=== PATIENT | male | born 1955 | race Caucasian/White ===

== ENCOUNTER 2018-05-18 09:14 | Observation (INO) | payer OTHER ==
[2018-05-18] MEDS ORDERED: Lactated Ringers 1,000 ML IV SCH (10:30)
[2018-05-18] MEDS ORDERED: Propofol 200 MG/20 ML SDV ONE (10:38)
[2018-05-18] MEDS ORDERED: Midazolam 1 MG/ML 2 ML SDV ONE (10:38)
[2018-05-18] MEDS ORDERED: ePHEDrine 50 MG/ML SDV ONE (10:39)
--- NOTE | 2018-05-18 11:50 | PCM.PREANE ---
Preanesthetic Assessment - Anesthesia/Transfusion/Family Hx Anesthesia History: Prior Anesthesia Without Reaction Family History of Anesthesia Reaction: No - Review of Systems General: No Symptoms Pulmonary: No Symptoms Cardiovascular: Other (arrythmia a flutter) Gastrointestinal: No Symptoms Neurological: No Symptoms Other: Reports: None, Easy Bleeding (on elliquis) - Physical Assessment O2 Sat by Pulse Oximetry: 93 Respiratory Rate: 18 Vital Signs: Last Vital Signs Temp 36.8 C 05/18/18 09:30 Pulse 63 05/18/18 10:00 Resp 18 05/18/18 10:00 BP 128/80 05/18/18 10:00 Pulse Ox 93 L 05/18/18 10:00 Height: 1.68 m Weight: 82.7 kg ASA Class: 2 Mental Status: Alert & Oriented x3 Airway Class: Mallampati = 1 Dentition: Reports: Normal Dentition ROM/Head Extension: Full Lungs: Clear to Auscultation, Normal Respiratory Effort Cardiovascular: Regular Rate, Regular Rhythm - Allergies Allergies/Adverse Reactions: Allergies Allergy/AdvReac Type Severity Reaction Status Date / Time No Known Allergies Allergy Verified 02/08/15 14:53 - Blood Blood Available: No - Anesthesia Plan Pre-Op Medication Ordered: None - Acknowledgements Anesthesia Type Planned: General Anesthesia Pt an Appropriate Candidate for the Planned Anesthesia: Yes Alternatives and Risks of Anesthesia Discussed w Pt/Guardian: Yes Pt/Guardian Understands and Agrees with Anesthesia Plan: Yes Additional Comments: scheduled for elective cardioversion of an outpatient with a flutter, who has been anticoagulated and placed on antiarrythmics for rate control. Appropriately NPO, good airway, consent obtained, questions answered. PreAnesthesia Questionnaire - CURRENT (IN HOUSE) MEDS Current Meds: Current Medications Lactated Ringer's (Ringers, Lactated) 1,000 mls @ 125 mls/hr IV ASDIRECTED DIAMANTE Discontinued Medications Ephedrine Sulfate (Ephedrine Sulfate) Confirm Administered Dose 50 mg .ROUTE .STK-MED ONE Stop: 05/18/18 10:40 Midazolam HCl (Versed 1 Mg/Ml) Confirm Administered Dose 2 mg .ROUTE .STK-MED ONE Stop: 05/18/18 10:39 Propofol (Diprivan 20 Ml) Confirm Administered Dose 200 mg .ROUTE .STK-MED ONE Stop: 05/18/18 10:39
--- NOTE | 2018-05-18 12:38 | PCM.PRNOTE ---
- Free Text/Narrative Note: PROCEDURE: Direct current cardioversion. REASON FOR PROCEDURE: Atrial flutter/ atrial fibrillation. PROCEDURE IN DETAIL: The procedure was explained to the patient with risks and benefits including risk of stroke. The patient understands . The patient had already been on anticogulation religiously including the day of the procedure. The pads applied in the anterior and posterior approach. With synchronized biphasic waveform at 50 J, one shock was delivered and the rhythm was turned into atrial fibrillation with slow rate. Then another attempt of cardioversion with biphasic waveform 200 j was performed. The ryhthm was converted to sinus bradycardia successfully. The patient had some occasional PACs noticed with occasional sinus bradycardia. The patient had no immediate post-procedure complications. The rhythm was maintained and 12-lead EKG was requested. IMPRESSION: Successful direct current cardioversion with jain of sinus rhythm from atrial flutter and atrial fibrillation with no immediate complication. Plan 1. post procedure observation for 6 hours 2. continue anticoagulation at least 4 weeks 3. I will start him on AAD amiodarone PO 4. f/u outpatient in one week
--- NOTE | 2018-05-18 15:09 | PCM48HPAN ---
Post Anesthesia Note - EVALUATION WITHIN 48HRS OF ANESTHETIC Vital Signs in Normal Range: Yes Patient Participated in Evaluation: Yes Respiratory Function Stable: Yes Airway Patent: Yes Cardiovascular Function Stable: Yes Hydration Status Stable: Yes Pain Control Satisfactory: Yes Nausea and Vomiting Control Satisfactory: Yes Mental Status Recovered: Yes Resp Rate: 18
--- NOTE | 2018-05-18 15:09 | PCM.POSTAN ---
POST ANESTHESIA ASSESSMENT - MENTAL STATUS Mental Status: Alert, Oriented - RESPIRATORY Respiratory Status: Respiratory Rate WNL, Airway Patent, O2 Saturation Stable - CARDIOVASCULAR CV Status: Pulse Rate WNL, Blood Pressure Stable - GASTROINTESTINAL GI Status: No Symptoms - POST OP HYDRATION Hydration Status: Adequate & Stable
[2018-05-18 15:55] VITALS: BP 109/56
[2018-05-18 15:56] LABS: CHLORIDE,CL 105 mmol/L (98-107); SODIUM,NA 140 mmol/L (136-148)
== END 2018-05-18 16:45 | disposition home or self-care (01) ==
LOC: MW.SDS 09:14 → MW.ICU 09:24
PROVIDERS: ADMIT Internal Medicine; ATTEND Internal Medicine
DX: I48.92 Unspecified atrial flutter (principal); I10 Essential (primary) hypertension; G89.4 Chronic pain syndrome; E11.42 Type 2 diabetes mellitus with diabetic polyneuropathy; Z79.899 Other long term (current) drug therapy; Z79.01 Long term (current) use of anticoagulants; Z79.84 Long term (current) use of oral hypoglycemic drugs; Z87.891 Personal history of nicotine dependence
CPT/HCPCS: 36415; 80053; 84443; 93005; J7120; J2250; J2704

== ENCOUNTER 2020-01-23 16:56 | Emergency (ER) | payer MEDICARE ==
--- NOTE | 2020-01-23 17:11 | EDM.PDOC ---
ED HPI GENERAL MEDICAL PROBLEM - General Chief Complaint: Upper Extremity Injury/Pain Stated Complaint: LEFT ANKLE PAIN Time Seen by Provider: 01/23/20 17:11 Source of Information: Reports: Patient History Limitations: Reports: No Limitations - History of Present Illness INITIAL COMMENTS - FREE TEXT/NARRATIVE: HISTORY AND PHYSICAL: History of present illness: Patient is a 64-year-old male presents to the ED With complaint of left ankle injury. Patient states that 1 week ago he was getting a horse out of a trailer. He states the horse back up over his left leg either stepping on or hitting his left ankle. He has been walking on it but states it is not getting better. He does take tramadol for knee pain and states he has been needing to take the tramadol more frequently due to the pain. Review of systems: As per history of present illness and below otherwise all systems reviewed and negative. Past medical history: As per history of present illness and as reviewed below otherwise noncontributory. Surgical history: As per history of present illness and as reviewed below otherwise noncontributory. Social history: No reported history of drug or alcohol abuse. Family history: As per history of present illness and as reviewed below otherwise noncontributory. Physical exam: General: Patient sitting comfortably in no acute distress and nontoxic appearing HEENT: Atraumatic, normocephalic, pupils reactive, negative for conjunctival pallor or scleral icterus, mucous membranes moist, throat clear, neck supple, nontender, trachea midline. No meningeal signs. Lungs: Clear to auscultation, breath sounds equal bilaterally, chest nontender. Heart: S1S2, regular, negative for clicks, rubs, or overt murmur. Abdomen: Soft, nondistended, nontender. Negative for masses or hepatosplenomegaly. Negative for costovertebral tenderness. No rigidity, rebound , guarding. Pelvis: Stable nontender. Genitourinary: Deferred. Rectal: Deferred. Extremities: Mild swelling to the medial ankle. No obvious deformity. Skin is intact. Pain to palpation along the medial malleolus. Atraumatic, negative for cords or calf pain. Neurovascular unremarkable. Neuro: Awake, alert, oriented. Cranial nerves II through XII unremarkable. Cerebellum unremarkable. Motor and sensory unremarkable throughout. Exam nonfocal. Notes: Diagnostics: Left ankle x-ray Therapeutics: post mold splint, crutches Prescriptions: Tramadol (#15) Impression: Posterior malleolus fracture Plan: Ice, elevate, and motrin or tylenol as needed Follow up with orthopedics, please call the number provided to schedule an appointment Return to ED as needed as discussed Definitive disposition and diagnosis as appropriate pending reevaluation and review of above. left lower extremity Pain Score (Numeric/FACES): 5 - Related Data Allergies Allergy/AdvReac Type Severity Reaction Status Date / Time No Known Allergies Allergy Verified 11/13/18 01:13 Home Meds: Home Meds Acetaminophen [Tylenol Arthritis] 650 mg PO DAILY 11/13/18 [History] Amiodarone [Cordarone] 0.5 tab PO DAILY 11/13/18 [History] Metoprolol Tartrate 1 tab PO BID 11/13/18 [History] Omeprazole 1 cap PO DAILY 11/13/18 [History] sitaGLIPtin Phos/Metformin HCl [Janumet 50-1,000 MG] 1 tab PO BID 11/13/18 [ History] traMADol HCl [Tramadol HCl ER] 1 tab PO DAILY 11/13/18 [History] traMADol HCl [Tramadol HCl] 1 tab PO DAILY PRN 11/13/18 [History] Past Medical History Endocrine/Metabolic History: Reports: Diabetes, Type II - Past Surgical History HEENT Surgical History: Reports: Eye Surgery Cardiovascular Surgical History: Reports: Cardiac Ablation GI Surgical History: Reports: Hernia, Inguinal Social & Family History - Family History Family Medical History: Noncontributory - Caffeine Use Caffeine Use: Reports: Coffee, Soda, Tea Review of Systems - Review of Systems Review Of Systems: Comprehensive ROS is negative, except as noted in HPI. ED EXAM, GENERAL - Physical Exam Exam: See Below (see dictation) Course - Vital Signs Last Recorded V/S: Last Vital Signs Temp 97.2 F 01/23/20 17:09 Pulse 71 01/23/20 17:09 Resp 16 01/23/20 17:09 BP 158/97 H 01/23/20 17:09 Pulse Ox 95 01/23/20 17:09 Departure - Departure Time of Disposition: 18:45 Disposition: Home, Self-Care 01 Condition: Good Clinical Impression: Fracture of malleolus - Discharge Information Referrals: Rafael Arellano MD [Primary Care Provider] - Forms: ED Department Discharge Additional Instructions: The following information is given to patients seen in the emergency department who are being discharged to home. This information is to outline your options for follow-up care. We provide all patients seen in our emergency department with a follow-up referral. The need for follow-up, as well as the timing and circumstances, are variable depending upon the specifics of your emergency department visit. If you don't have a primary care physician on staff, we will provide you with a referral. We always advise you to contact your personal physician following an emergency department visit to inform them of the circumstance of the visit and for follow-up with them and/or the need for any referrals to a consulting specialist. The emergency department will also refer you to a specialist when appropriate. This referral assures that you have the opportunity for follow-up care with a specialist. All of these measure are taken in an effort to provide you with optimal care, which includes your follow-up. Under all circumstances we always encourage you to contact your private physician who remains a resource for coordinating your care. When calling for follow-up care, please make the office aware that this follow-up is from your recent emergency room visit. If for any reason you are refused follow-up, please contact the [facility] Emergency Department at and asked to speak to the emergency department charge nurse. [facility] - [facility] [address], [address] [place] [address] 1. Ice, elevate, and motrin or tylenol as needed. You may take tramadol as needed for severe pain. 2. Follow up with orthopedics, please call the number provided to schedule an appointment 3. Return to ED as needed as discussed Sepsis Event Note - Evaluation Sepsis Screening Result: No Definite Risk - Focused Exam Vital Signs: Vital Signs Temp Pulse Resp BP Pulse Ox 01/23/20 17:09 97.2 F 71 16 158/97 H 95 Date Exam was Performed: 01/23/20 Time Exam was Performed: 18:44
--- NOTE | 2020-01-23 18:15 | CR ---
Left ankle: 3 views left ankle were obtained. Comparison: No previous study. Soft tissue swelling is identified. Plantar spur is noted. Vascular calcification is seen. Lucent line is identified through the posterior malleolus likely due to fracture. Bony density noted at the base of the 5th metatarsal which is well-corticated most likely represents an old injury. No additional abnormality is appreciated. Impression: 1. Probable acute posterior malleolus fracture. Please correlate that patient is symptomatic to this area. 2. Bony density off the base of the 5th metatarsal most likely due to old ununited fracture. If patient is symptomatic to this area, foot exam then recommended. 3. Soft tissue swelling and other findings as noted above. Diagnostic code #3 This report was dictated in Mountain Standard Time
[2020-01-23 19:13] VITALS: BP 131/73; PULSE 70
== END 2020-01-23 19:13 | disposition home or self-care (01) ==
LOC: MW.ED 16:56
DX: S82.892A Other fracture of left lower leg, initial encounter for closed fracture (principal); X58.XXXA Exposure to other specified factors, initial encounter
CPT/HCPCS: 29515; 73610-26-LT; 73610-LT; 99283; 99283-25

== ENCOUNTER 2020-10-03 13:12 | Emergency (ER) | payer MEDICARE ==
--- NOTE | 2020-10-03 13:16 | EDM.PDOC ---
ED HPI GENERAL MEDICAL PROBLEM - General Chief Complaint: Trauma Stated Complaint: TRAUMA ALERT Time Seen by Provider: 10/03/20 13:12 Source of Information: Reports: Patient History Limitations: Reports: No Limitations - History of Present Illness INITIAL COMMENTS - FREE TEXT/NARRATIVE: 65-year-old male past medical history hypertension, diabetes presents after getting kicked in the head by a cow. Patient states this occurred about 24 hours ago. Hit him in the right thigh. He notes swelling and pain around the right eye. Denies changes in vision. Notes mild pain in right posterior neck. No difficulty breathing, chest pain, abdominal pain, nausea, vomiting. He has been ambulatory after the accident. He took tramadol for pain at home. He is on a baby aspirin but denies any other antiplatelet or anticoagulation use. Right Eye Pain Score (Numeric/FACES): 3 - Related Data Allergies Allergy/AdvReac Type Severity Reaction Status Date / Time No Known Allergies Allergy Verified 10/03/20 13:27 Home Meds: Home Meds Acetaminophen [Tylenol Arthritis] 650 mg PO ASDIRECTED 11/13/18 [History] Amiodarone [Cordarone] 1 tab PO DAILY 11/13/18 [History] Metoprolol Tartrate 1 tab PO BID 11/13/18 [History] Omeprazole 2 cap PO DAILY 11/13/18 [History] sitaGLIPtin Phos/Metformin HCl [Janumet 50-1,000 MG] 1 tab PO BID 11/13/18 [History] traMADol HCl [Tramadol HCl ER] 1 tab PO DAILY 11/13/18 [History] traMADol HCl [Tramadol HCl] 1 tab PO DAILY PRN 11/13/18 [History] Amoxicillin/Potassium Clav [Augmentin 875-125 Tablet] 1 each PO BID 7 Days #14 tablet 10/03/20 [Rx] Pioglitazone [Actos] 1 dose PO DAILY 10/03/20 [History] Past Medical History Cardiovascular History: Reports: Afib, Hypertension Other Musculoskeletal History: knee surgery Endocrine/Metabolic History: Reports: Diabetes, Type II - Past Surgical History HEENT Surgical History: Reports: Eye Surgery Cardiovascular Surgical History: Reports: Cardiac Ablation GI Surgical History: Reports: Hernia, Inguinal Social & Family History - Family History Family Medical History: Noncontributory - Caffeine Use Caffeine Use: Reports: Coffee, Soda, Tea Review of Systems - Review of Systems Review Of Systems: Comprehensive ROS is negative, except as noted in HPI. ED EXAM, GENERAL - Physical Exam Exam: See Below Exam Limited By: No Limitations General Appearance: Alert, WD/WN, No Apparent Distress Eye Exam: Bilateral Eye: EOMI, PERRL Ears: Normal External Exam Nose: Normal Inspection Throat/Mouth: Normal Voice, No Airway Compromise Head: Normocephalic, Other (significant swelling of R periorbital face w/ overlying eyelid abrasions) Neck: Normal Inspection. No: Tender Midline Respiratory/Chest: No Respiratory Distress, Lungs Clear, Normal Breath Sounds, No Accessory Muscle Use Cardiovascular: Normal Peripheral Pulses, Regular Rate, Rhythm GI/Abdominal: Soft, Non-Tender Back Exam: Normal Inspection Extremities: Normal Inspection Neurological: Alert, Oriented, CN II-XII Intact Psychiatric: Normal Affect, Normal Mood Skin Exam: Warm, Dry, Intact Course - Vital Signs Last Recorded V/S: Last Vital Signs Temp 98.3 F 10/03/20 13:15 Pulse 67 10/03/20 13:15 Resp 16 10/03/20 13:15 BP 145/80 H 10/03/20 13:15 Pulse Ox 98 10/03/20 13:15 - Re-Assessments/Exams Free Text/Narrative Re-Assessment/Exam: 10/03/20 13:[address] head, max-face, C-spine. Will follow up results and disposition accordingly. 10/03/20 14:16 CT imaging is remarkable for orbital floor fracture. Will discharge with prophylactic antibiotics and ophthalmology follow-up. Return precautions discussed for entrapment. Departure - Departure Time of Disposition: 14:16 Disposition: Home, Self-Care 01 Condition: Good Clinical Impression: Orbital floor (blow-out) closed fracture - Discharge Information Prescriptions: Amoxicillin/Potassium Clav [Augmentin 875-125 Tablet] 1 each PO BID 7 Days #14 tablet Instructions: Orbital Floor Fracture With Entrapment Forms: ED Department Discharge Additional Instructions: CT imaging is remarkable for orbital floor fracture. You do not have any evidence of entrapment of your muscles. You should follow-up with an meter/relay craftsman for reassessment. I have also prescribed you antibiotics to prevent infection. The following information is given to patients seen in the emergency department who are being discharged to home. This information is to outline your options for follow-up care. We provide all patients seen in our emergency department with a follow-up referral. The need for follow-up, as well as the timing and circumstances, are variable depending upon the specifics of your emergency department visit. If you don't have a primary care physician on staff, we will provide you with a referral. We always advise you to contact your personal physician following an emergency department visit to inform them of the circumstance of the visit and for follow-up with them and/or the need for any referrals to a consulting specialist. The emergency department will also refer you to a specialist when appropriate. This referral assures that you have the opportunity for follow-up care with a specialist. All of these measure are taken in an effort to provide you with optimal care, which includes your follow-up. Under all circumstances we always encourage you to contact your private physician who remains a resource for coordinating your care. When calling for follow-up care, please make the office aware that this follow-up is from your recent emergency room visit. If for any reason you are refused follow-up, please contact the [facility] Emergency Department at and asked to speak to the emergency department charge nurse. Please follow up with your primary care physician. If you do not have a primary care physician, see below: [facility] [address] [place] [id number] [facility] [address] [place] [address] Sepsis Event Note (ED) - Focused Exam Vital Signs: Vital Signs Temp Pulse Resp BP Pulse Ox 10/03/20 13:15 98.3 F 67 16 145/80 H 98
--- NOTE | 2020-10-03 14:04 | CT ---
INDICATION: Kicked in face by a calf yesterday. COMPARISON: None TECHNIQUE: CT examination of the head was performed as axial sections without intravenous contrast. Images were obtained from the vertex of the skull through the skull base. Please note that all CT scans at this facility use dose modulation, iterative reconstruction, and/or weight-based dosing when appropriate to reduce radiation dose to as low as reasonably achievable. FINDINGS: The brain shows no sign of mass lesion, mass effect, hemorrhage, or edema. The ventricles and sulci are normal in appearance for the patient`s age. The visualized portions of the orbits are normal in appearance. There is soft tissue swelling in the region of the right orbit and there is a right orbital region fracture which will be further described in the facial bone report. IMPRESSION: 1. No visible acute intracranial posttraumatic findings. 2. Soft tissue swelling in the right orbital region within orbital region fracture which is more fully characterized in the facial bone report under separate cover Please note that all CT scans at this facility use dose modulation, iterative reconstruction, and/or weight-based dosing when appropriate to reduce radiation dose to as low as reasonably achievable. Dictated by Simón Shields MD @ Oct 03 2020 1:59PM Signed by Dr. Simón Shields @ Oct 03 2020 2:02PM
--- NOTE | 2020-10-03 14:08 | CT ---
INDICATION: Kicked in the face by a calf yesterday. COMPARISON: None TECHNIQUE: CT examination of the cervical spine is performed without contrast using spiral technique. Thin axial, sagittal and coronal reconstructions were made. Please note that all CT scans at this facility use dose modulation, iterative reconstruction, and/or weight-based dosing when appropriate to reduce radiation dose to as low as reasonably achievable. FINDINGS: : Bone mineral density appears decreased. There is no lytic or blastic lesion, fracture or dislocation identified involving the spine. There are moderate degenerative changes diffusely. There is an orbital region fracture on the right as more fully described in the facial bone report. IMPRESSION: 1. No fracture, dislocation or destructive process involving the spine. Degenerative changes. 2. Orbital region fracture on the right as more fully described on the facial bone report Please note that all CT scans at this facility use dose modulation, iterative reconstruction, and/or weight-based dosing when appropriate to reduce radiation dose to as low as reasonably achievable. Dictated by Simón Shields MD @ Oct 03 2020 2:02PM Signed by Dr. Simón Shields @ Oct 03 2020 2:06PM
--- NOTE | 2020-10-03 14:12 | CT ---
Indication: Kicked in the face by a calf yesterday Technique: CT examination of the facial bones was performed. Imaging was acquired from above the frontal sinuses through the hyoid bone. Contrast not administered. Sagittal and coronal reformatted imaging performed Comparison: None prior to today Findings: There is an orbital floor fracture on the right. This is a relatively large fracture where the majority of the floor is downwardly displaced. Maximum downward displacement is about 7 millimeters as measured from coronal image number 34. This does not have a typical angled trap door morphology but rather the near entirety of the floor is downwardly displaced. However, the inferior rectus muscle is not entrapped and is above the floor. There is soft tissue swelling in this area. There is pre-existing chronic appearing sinus mucosal inflammatory disease parent the fracture involves the infraorbital canal on the right. No additional fractures. There is soft tissue swelling especially in the preseptal right orbital area. There may be a subtle fracture of the nasal bone on the right versus is a 1 millimeter foreign body as seen on axial image 53 of 82. The globe is intact. There is no retro subpleural or intraconal involvement Impression: 1. Orbital floor fracture on the right as described. 2. Right periorbital soft tissue swelling. The globe is intact and there is no involvement of the retro subtotal or intraconal space on the right. 3. Soft tissue swelling overlying the nose especially towards the right. There is a tiny fracture versus a tiny foreign body as described Please note that all CT scans at this facility use dose modulation, iterative reconstruction, and/or weight-based dosing when appropriate to reduce radiation dose to as low as reasonably achievable. Dictated by Simón Shields MD @ Oct 03 2020 2:06PM Signed by Dr. Simón Shields @ Oct 03 2020 2:12PM
[2020-10-03] MEDS ORDERED: traMADol 50 MG Tab PO ONE (14:23)
[2020-10-03 14:29] VITALS: BP 156/79; PULSE 73
== END 2020-10-03 14:31 | disposition home or self-care (01) ==
LOC: MW.ED 13:12
DX: S02.31XA Fracture of orbital floor, right side, initial encounter for closed fracture (principal); I10 Essential (primary) hypertension; E11.9 Type 2 diabetes mellitus without complications; I48.91 Unspecified atrial fibrillation; Z79.899 Other long term (current) drug therapy; W55.22XA Struck by cow, initial encounter
CPT/HCPCS: 70450; 70486; 72125; 99283; A9270; 99282

== ENCOUNTER 2021-10-08 19:58 | Emergency (ER) | payer MEDICARE ==
[2021-10-08 20:22] VITALS: BP 140/83
[2021-10-08 22:22] VITALS: PULSE 100
--- NOTE | 2021-10-08 22:50 | EDM.PDOC ---
ED HPI GENERAL MEDICAL PROBLEM - General Chief Complaint: General Stated Complaint: COVID SYMTPOMS Time Seen by Provider: 10/08/21 21:17 - History of Present Illness INITIAL COMMENTS - FREE TEXT/NARRATIVE: CHIEF COMPLAINT(S): Tired HISTORY OF PRESENT ILLNESS: This is a 66-year-old man with a past medical history of diabetes mellitus, hypertension, atrial fibrillation who comes to the emergency department with a chief complaint of tired. The patient states that he has been extremely tired and was been sleeping all day. He states that this has been going on for approximately 1 week to 10 days. He has had intermittent fever and some shortness of breath with nonproductive cough. He states that he is in the emergency department because his is concerned because he does not usually sleep this much. He denies any chest pain, swelling of his legs, recent travel, recent surgery or prior history of DVT or PE. They state they are mainly concerned that he has Covid REVIEW OF SYSTEMS: Constitutional: Positive fatigue and fevers Eyes: Denies eye pain Ears, Nose, Mouth, & Throat: Denies earache Cardiovascular: Denies chest pain Respiratory: Positive for shortness of breath and nonproductive cough Gastrointestinal: Denies Nausea, vomiting, diarrhea, hematochezia. Genitourinary: Denies hematuria Skin:Denies a rash MSK: Denies joint pain Neurological: Denies blurred vision Psychiatric: Denies depression PAST MEDICAL HISTORY: As per history of present illness and as reviewed below otherwise noncontributory. SURGICAL HISTORY: As per history of present illness and as reviewed below otherwise noncontributory. SOCIAL HISTORY: As per history of present illness and as reviewed below otherwise noncontributory. FAMILY HISTORY: As per history of present illness and as reviewed below otherwise noncontributory. EXAMINATION OF ORGAN SYSTEMS/BODY AREAS: Constitutional: Blood pressure is 140/83, heart rate 85, respiratory rate 22 with an oxygen saturation of 95% on room air. Temperature 38.1 General: Middle-aged man who does not appear to be in any acute distress Psychiatric: Appropriate mood and affect. Eyes: No scleral icterus or conjunctival erythema ENMT: Moist mucous membranes. No pharyngeal erythema Cardiovascular: Regular, rate, and rhythm. No gallops, murmurs, or rubs. Bilateral upper extremity pulses symmetric and intact. No peripheral edema. No JVD. Respiratory: Lungs clear to auscultation bilaterally. No wheezes, rales, or rhonchi. Gastrointestinal: Soft, non-tender, non-distended. Normoactive bowel sounds Genitourinary: No suprapubic tenderness Musculoskeletal: Normal range of motion. Skin: No lesions or abrasions. Neurological: Alert, GCS 15 MEDICAL DECISION MAKING AND COURSE IN THE ED WITH INTERPRETATION/REVIEW OF DIAGNOSTIC STUDIES: This is a 66-year-old man with a past medical history of hypertension, diabetes mellitus who comes to the emergency department with 10 days of intermittent fever, cough and shortness of breath who is borderline hypoxic on room air and borderline febrile who overall appears well. At this time will obtain a COVID-19 swab. I do not believe any other labs or imaging are indicated. Patient was amenable to this plan. Laboratory: COVID-19 is positive. Given the patient is 10 days into his illness the patient is not a candidate for Regeneron therapy. I did discuss symptomatic treatment at home and strict return precautions. The patient was amenable discharge and had no further questions. DISPOSITION: The patient was discharged home in stable condition. The patient will follow up with primary care physician in 3 to 5 days CONDITION: Fair PROCEDURES: None FINAL IMPRESSION(S)/DIAGNOSES: 1. Acute COVID-19 infection Geo Leija M.D. - Related Data Allergies Allergy/AdvReac Type Severity Reaction Status Date / Time No Known Allergies Allergy Verified 10/08/21 20:20 Home Meds: Home Meds Acetaminophen [Tylenol Arthritis] 650 mg PO ASDIRECTED 11/13/18 [History] Amiodarone [Cordarone] 1 tab PO DAILY 11/13/18 [History] Metoprolol Tartrate 1 tab PO BID 11/13/18 [History] Omeprazole 2 cap PO DAILY 11/13/18 [History] sitaGLIPtin Phos/Metformin HCl [Janumet 50-1,000 MG] 1 tab PO BID 11/13/18 [History] traMADol HCl [Tramadol HCl ER] 1 tab PO DAILY 11/13/18 [History] traMADol HCl [Tramadol HCl] 1 tab PO DAILY PRN 11/13/18 [History] Pioglitazone [Actos] 1 dose PO DAILY 10/03/20 [History] Past Medical History Cardiovascular History: Reports: Afib, Hypertension Other Musculoskeletal History: knee surgery Endocrine/Metabolic History: Reports: Diabetes, Type II Hematologic History: Reports: None - Past Surgical History HEENT Surgical History: Reports: Eye Surgery Cardiovascular Surgical History: Reports: Cardiac Ablation GI Surgical History: Reports: Hernia, Inguinal Social & Family History - Family History Family Medical History: No Pertinent Family History - Tobacco Use Second Hand Smoke Exposure: No - Caffeine Use Caffeine Use: Reports: None - Recreational Drug Use Recreational Drug Use: No ED ROS GENERAL - Review of Systems Review Of Systems: See Below ED EXAM, GENERAL - Physical Exam Exam: See Below Course - Vital Signs Last Recorded V/S: Last Vital Signs Temp 38.1 C 10/08/21 20:17 Pulse 100 10/08/21 22:22 Resp 18 10/08/21 22:22 BP 140/83 10/08/21 20:17 Pulse Ox 96 10/08/21 22:22 - Orders/Labs/Meds Labs: Laboratory Tests 10/08/21 Range/Units 20:20 SARS-CoV-2 RNA ([facility]LER) POSITIVE H (NEGATIVE) Departure - Departure Time of Disposition: 22:49 Disposition: Home, Self-Care 01 Condition: Fair Clinical Impression: COVID-19 - Discharge Information *PRESCRIPTION DRUG MONITORING PROGRAM REVIEWED*: No *COPY OF PRESCRIPTION DRUG MONITORING REPORT IN PATIENT LISANDRO: No Instructions: What You Should Know About COVID-19 to Protect Yourself and Others - CDC, 10 Things You Can Do to Manage Your COVID-19 Symptoms at Home - [facility] (06/15/2021), COVID-19: How to Protect Yourself and Others - CDC, COVID-19: Quarantine vs. Isolation - [facility] (11/16/2020), COVID-19: What to Do If You Are Sick- [facility] (02/14/2021) Referrals: Rafael Arellano MD [Primary Care Provider] - Forms: ED Department Discharge Additional Instructions: You should take acetaminophen 500-1000 mg every 6 hours as needed for fever and muscle aches. Please drink plenty of fluids and get plenty of rest over the next several days. We would recommend that she get a pulse oximeter from the pharmacy to keep an eye on your oxygen level. If your oxygen level drops below 91%, you should return to the ED for evaluation. You should return to the ER sooner if you start having any symptoms of shortness of breath or any other new or concerning symptoms. 1. Your COVID-19 screening is positive. That means you do have the coronavirus and you are considered contagious. Your vital signs and oxygen saturation are well enough that you were able to monitor your symptoms at home. Continue to monitor for trouble breathing, new confusion or inability to arouse, bluish lips or face or any of the other symptoms we discussed -if this occurs please return to the emergency room. 2. Please self quarantine over the next 10 days. Inform any persons that you have been in contact with since you started becoming symptomatic that you have tested positive; they should be made aware and take the appropriate steps as needed. 3. May alternate Tylenol and ibuprofen as needed for pain and fever management. 4. The [facility] department will be calling you and following up with you. The [place] COVID 19 Hotline phone number , They are open Friday - Friday 7am - 7pm. Follow up with your primary care provider for re-evaluation and re-testing after the 10 day quarantine and discuss when you should be seen. [facility] - Primary [facility] [address] [place] [address] [place] [address] The patient is informed of any results of their evaluation and diagnostic workup and all questions are answered. They are given discharge instructions and return precautions. The patient is stable for discharge. The patient states they understand and agree with the plan and that they will return if their symptoms get worse or if they have any new concerns. The following information is given to patients seen in the emergency department who are being discharged to home. This information is to outline your options for follow-up care. We provide all patients seen in our emergency department with a follow-up referral. The need for follow-up, as well as the timing and circumstances, are variable depending upon the specifics of your emergency department visit. If you don't have a primary care physician on staff, we will provide you with a referral. We always advise you to contact your personal physician following an emergency department visit to inform them of the circumstance of the visit and for follow-up with them and/or the need for any referrals to a consulting specialist. The emergency department will also refer you to a specialist when appropriate. This referral assures that you have the opportunity for follow-up care with a specialist. All of these measure are taken in an effort to provide you with optimal care, which includes your follow-up. Under all circumstances we always encourage you to contact your private physician who remains a resource for coordinating your care. When calling for follow-up care, please make the office aware that this follow-up is from your recent emergency room visit. If for any reason you are refused follow-up, please contact the [facility] Department at and asked to speak to the emergency department charge nurse. Sepsis Event Note (ED) - Evaluation Sepsis Screening Result: No Definite Risk - Focused Exam Vital Signs: Vital Signs Temp Pulse Resp BP Pulse Ox 10/08/21 22:22 100 18 96 10/08/21 20:17 38.1 C 85 22 H 140/83 94 L
== END 2021-10-08 23:15 | disposition home or self-care (01) ==
LOC: MW.ED 19:58
DX: U07.1 COVID-19 (principal); E11.9 Type 2 diabetes mellitus without complications; I10 Essential (primary) hypertension; Z79.899 Other long term (current) drug therapy
CPT/HCPCS: 99283; U0002

== ENCOUNTER 2021-10-11 14:16 | Emergency (ER) | payer MEDICARE ==
[2021-10-11] MEDS ORDERED: Sodium Chloride 0.9% 1,000 ML IV ONE (14:43)
--- NOTE | 2021-10-11 14:49 | EDM.PDOC ---
ED HPI GENERAL MEDICAL PROBLEM - General Chief Complaint: General Stated Complaint: HASNT BEEN EATING SICK Time Seen by Provider: 10/11/21 14:23 Source of Information: Reports: Patient History Limitations: Reports: No Limitations - History of Present Illness INITIAL COMMENTS - FREE TEXT/NARRATIVE: HISTORY AND PHYSICAL: History of present illness: Patient is a 66-year-old male who presents to the emergency room with known COVID-19 who has complaints of decreased appetite and nausea/vomiting with attempting to eat. Patient states he hasn't eaten in 3 to 4 days. Today he att empted to eat some tomato soup but immediately had an emesis. He states he feels generally weak and fatigued. He has had COVID type symptoms for the past 2 weeks. Patient denies any fever, chills, headache, change in vision, syncope or near syncope. Denies any chest pain, back pain, shortness of breath or cough. Denies any abdominal pain, diarrhea, constipation or dysuria. Has not noted any blood in urine or stool. Review of systems: As per history of present illness and below otherwise all systems reviewed and negative. Past medical history: As per history of present illness and as reviewed below otherwise noncontributory. Surgical history: As per history of present illness and as reviewed below otherwise noncontributory. Social history: See social history for further information Family history: As per history of present illness and as reviewed below otherwise noncontributory. Physical exam: General: Well developed and well nourished. Alert and orientated x 3. Nontoxic i n appearance and in no acute distress. Vital signs are stable and have been reviewed by me. Nursing notes were reviewed. HEENT: Atraumatic, normocephalic, pupils equal and reactive bilaterally, negat kendrick for conjunctival pallor or scleral icterus, mucous membranes dry, TMs normal bilaterally, throat clear, neck supple, nontender, trachea midline. No drooling or trismus noted. No meningeal signs. No hot potato voice noted. Lungs: Clear to auscultation bilaterally. No wheezes, rales, or rhonchi. Chest nontender. Normal work of breathing, no accessory muscles used. Heart: S1S2, regular rate and rhythm without overt murmur, gallops, or rubs. No JVD. No peripheral edema Abdomen: Soft, nondistended, nontender. Normoactive bowel sounds. Negative for masses or costovertebral tenderness. Pelvis: Stable nontender. Genitourinary/Rectal: Deferred. Skin: Intact, warm, dry. No lesions or rashes noted. Hematologic: No petechiae or purpra. Mucosa appropriate color and normal nail bed color and refill. Extremities: Atraumatic, moves all extremities per self without difficulty or deficits, negative for cords or calf pain. Neurovascular unremarkable. Neuro: Awake, alert, oriented. Cranial nerves II through XII unremarkable. Cerebellum unremarkable. Motor and sensory unremarkable throughout. Exam nonfocal. Psychiatric: Mood and affect are appropriate. Normal thought process. Answering questions appropriately. Please note that the patient was seen and evaluated during the 2019 SARS-CoV-2 novel coronavirus pandemic period. Community viral transmission is ongoing at time of this encounter and the emergency department is operating under pandemic response procedures. Medical Decision Making: Patient is a 66-year-old male who presents to the emergency room with known COVID-19 (symptoms x2 weeks) who complains of anorexia, decreased p.o. intake and nausea/vomiting after trying to eat today. Patient was not a candidate for monoclonal antibody therapy upon his diagnosis of COVID-19. Physical exam is unremarkable. His vital signs are stable. He does clinically appear dehydrated, will give him some fluids while waiting on basic labs. Mild derangements on labs, nothing concerning today. Patient is a type II diabetic and states he has not been taking his medications due to his decreased appetite. Anion gap is 8.9. Chest x-ray shows questionable patchy right infiltrates. I have talked with the patient about today's findings, in addition to providing specific details for plan of care. Reassessment at the time of disposition demonstrates that the patient is in no acute distress. Encourage patient to follow-up with his primary care provider for reevaluation and further management of his type 2 diabetes. The patient is stable for discharge, counseling was provided and we discussed in great detail signs and symptoms that would prompt them to return to the Emergency Department. Medication, follow up and supportive care measures were reviewed and discussed. Voices understanding and is agreeable to plan of care. Denies any further questions or concerns at this time. Diagnostics: CBC, CMP, chest x-ray Therapeutics: IV fluid, Zofran, Toradol Prescription: Zofran Impression: COVID-19 Type II diabetic Plan: 1. You were evaluated today on an emergent basis. Your lab work and chest x- ray show no acute or concerning findings. Your vital signs and oxygen saturati on are well enough that you were able to monitor your symptoms at home. Continue to monitor for trouble breathing, new confusion or inability to arouse, bluish lips or face or any of the other symptoms we discussed -if this occurs please return to the emergency room immediately. 2. Please self quarantine until cleared by [facility] Department. Inform any persons that you have been in contact with since you started becoming symptomatic that you have tested positive; they should be made aware and take the appropriate steps as needed. 3. Zofran has been prescribed for nausea management. You can take NyQuil during the evening to help get a restful night sleep. May alternate Tylenol and ibuprofen as needed for pain and fever management. 4. The [facility] department will be calling you and following up with you. The [facility] Hotline phone number , They are open Friday - Friday 7am - 7pm. Follow up with your primary care provider for re-evaluation as directed. Definitive disposition and diagnosis as appropriate pending reevaluation and review of above. - Related Data Allergies Allergy/AdvReac Type Severity Reaction Status Date / Time No Known Allergies Allergy Verified 10/11/21 14:48 Home Meds: Home Meds Acetaminophen [Tylenol Arthritis] 650 mg PO ASDIRECTED 11/13/18 [History] Amiodarone [Cordarone] 1 tab PO DAILY 11/13/18 [History] Metoprolol Tartrate 1 tab PO BID 11/13/18 [History] Omeprazole 2 cap PO DAILY 11/13/18 [History] sitaGLIPtin Phos/Metformin HCl [Janumet 50-1,000 MG] 1 tab PO BID 11/13/18 [History] traMADol HCl [Tramadol HCl ER] 1 tab PO DAILY 11/13/18 [History] traMADol HCl [Tramadol HCl] 1 tab PO DAILY PRN 11/13/18 [History] Pioglitazone [Actos] 1 dose PO DAILY 10/03/20 [History] Ondansetron [Zofran ODT] 4 mg PO Q6H PRN #8 tab.dis 10/11/21 [Rx] Past Medical History Cardiovascular History: Reports: Afib, Hypertension Other Musculoskeletal History: knee surgery Endocrine/Metabolic History: Reports: Diabetes, Type II Hematologic History: Reports: None - Past Surgical History HEENT Surgical History: Reports: Eye Surgery Cardiovascular Surgical History: Reports: Cardiac Ablation GI Surgical History: Reports: Hernia, Inguinal Social & Family History - Family History Family Medical History: No Pertinent Family History - Caffeine Use Caffeine Use: Reports: None ED ROS GENERAL - Review of Systems Review Of Systems: Comprehensive ROS is negative, except as noted in HPI. ED EXAM, GENERAL - Physical Exam Exam: See Below (See dictation) Course - Vital Signs Last Recorded V/S: Last Vital Signs Temp 97.3 F 10/11/21 14:49 Pulse 87 10/11/21 14:49 Resp 17 10/11/21 14:49 BP 136/73 10/11/21 14:49 Pulse Ox 95 10/11/21 14:49 - Orders/Labs/Meds Orders: Active Orders 24 hr Category Date Time Status Sodium Chloride 0.9% [Normal Saline] 1,000 ml Med 10/11/21 14:43 Active IV STAT Medication Orders Sodium Chloride (Normal Saline) 1,000 mls @ 125 mls/hr IV STAT ONE Stop: 10/11/21 22:42 Last Admin: 10/11/21 15:05 Dose: 125 mls/hr Documented by: PAOLO Labs: Laboratory Tests 10/11/21 10/11/21 10/11/21 Range/Units 15:00 15:00 15:00 WBC 7.06 (4.0-11.0) K/uL RBC 4.77 (4.50-5.90) M/uL Hgb 14.2 (13.0-17.0) g/dL Hct 42.1 (38.0-50.0) % MCV 88.3 (80.0-98.0) fL MCH 29.8 (27.0-32.0) pg MCHC 33.7 (31.0-37.0) g/dL RDW Std Deviation 43.1 (28.0-62.0) fl RDW Coeff of Kory 13 (11.0-15.0) % Plt Count 265 (150-400) K/uL MPV 9.70 (7.40-12.00) fL Neut % (Auto) 84.0 H (48.0-80.0) % Lymph % (Auto) 9.2 L (16.0-40.0) % Alcorn % (Auto) 6.7 (0.0-15.0) % Eos % (Auto) 0.0 (0.0-7.0) % Baso % (Auto) 0.1 (0.0-1.5) % Neut # (Auto) 5.9 H (1.4-5.7) K/uL Lymph # (Auto) 0.7 (0.6-2.4) K/uL Alcorn # (Auto) 0.5 (0.0-0.8) K/uL Eos # (Auto) 0.0 (0.0-0.7) K/uL Baso # (Auto) 0.0 (0.0-0.1) K/uL Nucleated RBC % 0.0 /100WBC Nucleated RBCs # 0 K/uL Sodium 136 (136-148) mmol/L Potassium 4.3 (3.5-5.1) mmol/L Chloride 99 (98-107) mmol/L Carbon Dioxide 28.1 (21.0-32.0) mmol/L BUN 24 H (7.0-18.0) mg/dL Creatinine 1.1 (0.8-1.3) mg/dL Est Cr Clr Drug Dosing 58.81 mL/min Estimated GFR (MDRD) > 60.0 ml/min Glucose 193 H (74-106) mg/dL Calcium 9.0 (8.5-10.1) mg/dL Total Bilirubin 0.5 (0.2-1.0) mg/dL AST 19 (15-37) IU/L ALT 22 (14-63) IU/L Alkaline Phosphatase 81 (46-116) U/L Total Protein 8.0 (6.4-8.2) g/dL Albumin 3.1 L (3.4-5.0) g/dL Globulin 4.9 H (2.6-4.0) g/dL Albumin/Globulin Ratio 0.6 L (0.9-1.6) Urine Color YELLOW Urine Appearance CLEAR Urine pH 5.5 (5.0-8.0) Ur Specific Rule >= 1.030 (1.001-1.035) Urine Protein 30 H (NEGATIVE) mg/dL Urine Glucose (UA) 250 H (NEGATIVE) mg/dL Urine Ketones TRACE H (NEGATIVE) mg/dL Urine Occult Blood TRACE-INTACT H (NEGATIVE) Urine Nitrite NEGATIVE (NEGATIVE) Urine Bilirubin SMALL H (NEGATIVE) Urine Urobilinogen 0.2 (<2.0) EU/dL Ur Leukocyte Esterase NEGATIVE (NEGATIVE) Urine RBC 0-5 (0-2/HPF) Urine WBC 0-5 (0-5/HPF) Ur Epithelial Cells RARE (NONE-FEW) Urine Bacteria NOT SEEN (NEGATIVE) Meds: Medications Generic Name Dose Route Start Last Admin Trade Name Freq PRN Reason Stop Dose Admin Sodium Chloride 1,000 mls @ 125 mls/hr 10/11/21 14:43 10/11/21 15:05 Normal Saline IV 10/11/21 22:42 125 mls/hr STAT ONE Administration Discontinued Medications Generic Name Dose Route Start Last Admin Trade Name Freq PRN Reason Stop Dose Admin Ketorolac Tromethamine 30 mg 10/11/21 15:45 10/11/21 15:56 Ketorolac 30 Mg/Ml Sdv IVPUSH 10/11/21 15:46 30 mg ONETIME ONE Administration Departure - Departure Time of Disposition: 16:03 Disposition: Home, Self-Care 01 Clinical Impression: COVID-19 DM type 2 (diabetes mellitus, type 2) Qualifiers: Diabetes mellitus prison insulin use: without rn long term care use Diabetes mellitus complication status: with hyperglycemia Qualified Code(s): E11.65 - Type 2 diabetes mellitus with hyperglycemia - Discharge Information Prescriptions: Ondansetron [Zofran ODT] 4 mg PO Q6H PRN #8 tab.dis PRN Reason: Nausea Instructions: 10 Things You Can Do to Manage Your COVID-19 Symptoms at Home - [facility] (06/15/2021) Referrals: Rafael Arellano MD [Primary Care Provider] - Forms: ED Department Discharge Additional Instructions: The following information is given to patients seen in the emergency department who are being discharged to home. This information is to outline your options for follow-up care. We provide all patients seen in our emergency department with a follow-up referral. The need for follow-up, as well as the timing and circumstances, are variable depending upon the specifics of your emergency department visit. If you don't have a primary care physician on staff, we will provide you with a referral. We always advise you to contact your personal physician following an emergency department visit to inform them of the circumstance of the visit and for follow-up with them and/or the need for any referrals to a consulting specialist. The emergency department will also refer you to a specialist when appropriate. This referral assures that you have the opportunity for follow-up care with a specialist. All of these measure are taken in an effort to provide you with optimal care, which includes your follow-up. Under all circumstances we always encourage you to contact your private physician who remains a resource for coordinating your care. When calling for follow-up care, please make the office aware that this follow-up is from your recent emergency room visit. If for any reason you are refused follow-up, please contact the [facility] at and asked to speak to the emergency department charge nurse. [facility] [address] [place] [id number] [facility] [address] [place] [id number] Thank you for choosing the [facility] emergency department in [place] for your medical needs today. It was a pleasure caring for you. Today you were seen in the emergency department for COVID -19, nausea, vomiting. Your prescription was electronically sent to: [place] pharmacy 1. You were evaluated today on an emergent basis. Your lab work and chest x- ray show no acute or concerning findings. Your vital signs and oxygen saturati on are well enough that you were able to monitor your symptoms at home. Continue to monitor for trouble breathing, new confusion or inability to arouse, bluish lips or face or any of the other symptoms we discussed -if this occurs please return to the emergency room immediately. 2. Please self quarantine until cleared by [facility] Department. Inform any persons that you have been in contact with since you started becoming symptomatic that you have tested positive; they should be made aware and take the appropriate steps as needed. 3. Zofran has been prescribed for nausea management. You can take NyQuil during the evening to help get a restful night sleep. May alternate Tylenol and ibuprofen as needed for pain and fever management. 4. The [facility] department will be calling you and following up with you. The [facility] Hot[facility] phone number , They are open Friday - Friday 7am - 7pm. Follow up with your primary care provider for re-evaluation as directed. Sepsis Event Note (ED) - Focused Exam Vital Signs: Vital Signs Temp Pulse Resp BP Pulse Ox 10/11/21 14:49 97.3 F 87 17 136/73 95 - My Orders Last 24 Hours: My Active Orders 10/11/21 14:43 Sodium Chloride 0.9% [Normal Saline] 1,000 ml IV STAT - Assessment/Plan Last 24 Hours: My Active Orders 10/11/21 14:43 Sodium Chloride 0.9% [Normal Saline] 1,000 ml IV STAT
[2021-10-11 14:52] VITALS: BP 136/73; PULSE 87
--- NOTE | 2021-10-11 15:26 | CR ---
INDICATION: Pelvic, shortness of breath TECHNIQUE: Chest 1 view. COMPARISON: 11/13/2018 FINDINGS: Cardiovascular and mediastinum: Heart size and vasculature are normal in caliber and appearance. Mediastinum is within normal limits. Lungs and pleural space: Questionable patchy right lung infiltrates. No sign of pleural effusion. No pneumothorax. Bones and soft tissues: No significant findings. IMPRESSION: Questionable patchy right infiltrates. Dictated by Dariel Bradley MD @ 10/11/2021 3:25:56 PM (Electronically Signed)
[2021-10-11 15:32] LABS: BLOOD UREA NITROGEN,BUN 24 mg/dL (7.0-18.0); CARBON DIOXIDE,CO2 28.1 mmol/L (21.0-32.0); CHLORIDE,CL 99 mmol/L (98-107); GLUCOSE RANDOM 193 mg/dL (74-106); POTASSIUM,K 4.3 mmol/L (3.5-5.1); SODIUM,NA 136 mmol/L (136-148)
[2021-10-11] MEDS ORDERED: Ketorolac 30 MG/ML SDV IVPUSH ONE (15:45)
== END 2021-10-11 16:37 | disposition home or self-care (01) ==
LOC: MW.ED 14:16
DX: U07.1 COVID-19 (principal); E11.65 Type 2 diabetes mellitus with hyperglycemia; I48.91 Unspecified atrial fibrillation; I10 Essential (primary) hypertension; Z79.899 Other long term (current) drug therapy
CPT/HCPCS: 36415; 71045; 80053; 81001; 85025; 96374; 99285; J1885; J7030

== ENCOUNTER 2022-06-11 21:07 | Emergency (ER) | payer MEDICARE ==
[2022-06-11] MEDS ORDERED: Sodium Chloride 0.9% 10 ML Syringe FLUSH PRN (21:50)
[2022-06-11] MEDS ORDERED: Sodium Chloride 0.9% 2.5 ML Syringe FLUSH PRN (21:50)
[2022-06-11] MEDS ORDERED: Acetaminophen 325 MG Tab PO ONE (21:51)
[2022-06-11] MEDS ORDERED: Ketorolac 30 MG/ML SDV IVPUSH ONE (21:57)
[2022-06-11 22:39] LABS: CARBON DIOXIDE,CO2 27.3 mmol/L (21.0-32.0); POTASSIUM,K 3.9 mmol/L (3.5-5.1)
[2022-06-11 22:41] LABS: CORONAVIRUS COVID-19 NAA POSITIVE (NEGATIVE); INFLUENZA A NAA NEGATIVE (NEGATIVE); INFLUENZA B NAA NEGATIVE (NEGATIVE)
[2022-06-11 23:22] VITALS: BP 129/87; PULSE 89
== END 2022-06-11 23:22 | disposition home or self-care (01) ==
LOC: MW.ED 21:07
DX: U07.1 COVID-19 (principal); I10 Essential (primary) hypertension; E11.9 Type 2 diabetes mellitus without complications; Z79.899 Other long term (current) drug therapy
CPT/HCPCS: 0240U; 36415; 71045; 80053; 83605; 85025; 87040; 96374; 99283; A9270; J1885; J3490